=== PATIENT | female | born 1945 | race Caucasian/White ===

== ENCOUNTER 2021-12-14 16:44 | Inpatient (IN) | payer BC, MEDICAID ==
[~2021-12-14] VITALS: Ht 160 cm; Wt 74.8 kg
[2021-12-14 18:04] LABS: EOSINOPHILS % 0.6 % (0.0-5.0); HEMATOCRIT. 44.3 % (36.0-48.0); HEMOGLOBIN. 14.5 g/dL (12.0-16.0); LYMPHOCYTES % 32.4 % (20.0-50.0); MEAN CORPUSCULAR HEMOGLOBIN 31.6 pg (28.0-32.0); MEAN CORPUSCULAR VOLUME 96.5 fL (81.0-99.0); MEAN PLATELET VOLUME 9.7 fl (7.4-10.4); MONOCYTES % 9.7 % (2.0-8.0); NEUTROPHILS % 56.3 % (40.0-76.0); PLATELET 164 x1000/uL (130-400); RED BLOOD CELL COUNT 4.59 mill/uL (4.2-5.4); RED CELL DISTRIBUTION WIDTH 15.7 % (11.6-14.6)
[2021-12-14 18:31] LABS: CHLORIDE 106 mEq/L (98-107)
[2021-12-15 04:30] VITALS: BP 92/64
[2021-12-15] MEDS ORDERED: MAGNESIUM/ALUMINUM HYDROXIDE/SIMETHICONE 30ML UDC PO PRN (05:00)
[2021-12-15] MEDS ORDERED: ONDANSETRON HCL 4MG/2ML INJ IV PRN (05:00)
[2021-12-15] MEDS ORDERED: TRAMADOL 50MG TABLET PO PRN (05:00)
[2021-12-15] MEDS ORDERED: DOCUSATE SODIUM 100MG CAPSULE PO PRN (05:00)
[2021-12-15] MEDS ORDERED: GUAIFENESIN 200MG/10ML SUGAR FREE UDC PO PRN (05:00)
[2021-12-15] MEDS ORDERED: ACETAMINOPHEN 325MG TABLET PO PRN (05:00)
[2021-12-15 05:10] VITALS: BP 92/64
[2021-12-15 06:30] VITALS: BP 99/62
[2021-12-15 08:00] VITALS: BP 101/63
[2021-12-15] MEDS ORDERED: ENOXAPARIN 40MG/0.4ML SYR SUBCUT SCH (09:00)
[2021-12-15 12:00] VITALS: BP 106/68
[2021-12-15 15:45] VITALS: BP 105/68
== END 2021-12-15 16:24 | disposition home or self-care (01) | DRG 312 ==
LOC: ER 16:44 → 7WST 23:48 → EDBEDREQTM 23:52 → EDBEDREQ 23:52 → 7WST 12-15 04:49
PROVIDERS: ADMIT Hospitalist; ATTEND Hospitalist
DX: I95.2 Hypotension due to drugs (principal); I50.22 Chronic systolic (congestive) heart failure; I48.91 Unspecified atrial fibrillation; I11.0 Hypertensive heart disease with heart failure
CPT/HCPCS: 36415; 71045; 80053; 83605; 83880; 84484; 85025; 86850; 86900; 93005; 93306; 93970; 99285; J1650